=== PATIENT | male | born 1990 | race Caucasian/White ===

== ENCOUNTER 2023-09-15 05:38 | Emergency (ER) | payer BC, SELFPAY ==
--- NOTE | ~2023-09-15 | CT_ITS ---
Non-contrast CT scan of the Abdomen and Pelvis Clinical indication: Right flank pain Technique: 2.5 mm axial scans were obtained through the abdomen and pelvis without intravenous or or al contrast. Dose reduction technique was used on this scan by utilizing automated exposure control a nd iterative reconstruction technique. The dose-length product (DLP) was 493.10 mGy-cm. Findings: Images through the lung bases reveal calcified right basilar granuloma. There is no evidence of renal or ureteral calculi. The kidneys and the ureters are nondilated. The liver, spleen, pancreas, gallbladder, and adrenals appear normal. There is no aortic aneurysm. There is no evidence of bowel obstruction. Images through the pelvis were performed. There is no evidence of ascites or lymphadenopathy. Urinary bladder unremarkable. No pelvic mass seen. No ascites. Impression: No significant abnormality seen. Reviewed, dictated and finalized at [facility] [place]. Impression: No significant abnormality seen.
[2023-09-15 05:42] VITALS: TEMP 36.4
--- NOTE | 2023-09-15 05:51 | ED.ABDPAIN ---
HPI - Abdominal Pain General Chief Complaint: Abdominal Pain Stated Complaint: abd pain Time Seen by Provider: 09/15/23 05:42 History of Present Illness HPI narrative: Patient is a 32-year-old male who presents to the emergency department this morning complaining of sudden onset right lower quadrant abdominal pain. Patient states that the pain will come up from sleep around 3:00 a.m. Denies any similar symptoms in the past, and denies any history of kidney stones. Patient states that he went to urinate and felt as though he needed to urinate but could not get much out. He admits to nausea as well. Rates the pain 6/10. Denies any fevers or chills at home. Denies any lower back pain or right flank pain. No additional symptoms or concerns at this time. Related Data Allergies Allergy/AdvReac Type Severity Reaction Status Date / Time No Known Allergies Allergy Verified 09/15/23 05:52 Review of Systems Review of Systems: All systems are reviewed and are negative unless stated otherwise in the HPI. Exam Narrative: General: Alert, awake, afebrile, appears uncomfortable. HEENT: PERRL, no rhinorrhea, no post nasal drip, oropharynx clear. Cardiovascular: Regular rate and rhythm, no murmurs, rubs or gallops, no peripheral edema. Respiratory: Clear to auscultation bilaterally, no tachypnea, no wheezing, no rhonchi, no rubs, no respiratory distress. Abdomen: Soft, nontender, nondistended, no rebound, no guarding, no peritoneal signs. Musculoskeletal: No joint swelling or deformity, normal muscle tone. Skin: No rashes or petechia, no signs of infection. Neurological: Alert and oriented to person, place, and time. Follows all commands. No focal deficits, speech is clear and fluent. Course Vital Signs Vital signs: Vital Signs Temperature 97.6 F 09/15/23 05:42 Temperature 97.6 F 09/15/23 05:42 Pulse Rate 51 L 09/15/23 06:00 Respiratory Rate 16 09/15/23 06:00 Blood Pressure 145/99 H 09/15/23 06:00 Pulse Oximetry 100 09/15/23 06:00 MDM - Abdominal Pain MDM Narrative Medical decision making narrative: The patient was evaluated by myself in the emergency department. History is obtained from patient who is an independent historian and physical exam was performed. External medical records were reviewed at this time. IV was established and pertinent tests were ordered. Patient was administered a 1 L IV fluid bolus with normal saline, 15 mg of IV Toradol for pain and 4 mg of IV Zofran for nausea. Laboratory results obtained revealing no acute process. Urinalysis revealed 2+ blood and 51-100 rbc's. Imaging studies obtained included CT abdomen and pelvis which was independently interpreted by me revealing no acute process, which is pending final radiology interpretation. patient was informed that this could be due to him having passed a kidney stone. CT did not comment on patient's appendix and patient was informed that if his pain returns that he needs to come back to the emergency department for further evaluation. I did call the radiologist at this time as the final CT we did not comment on the patient's appendix. Dr. Lehman did look at the scan again and did inform me that the appendix appeared normal. Differential diagnosis considerations include obstructive uropathy, appendicitis and urinary tract infection. Comorbidities impacting this visit include none. I have evaluated and discussed social determinants of health with the patient that could potentially impact subsequent diagnosis and treatment plans. On repeat assessment of the patient, reevaluation revealed that the patient is doing well and is in no acute distress. Patient symptoms have improved since he arrived to our emergency department. Repeat vital signs were all reviewed and noted to be stable. Differential diagnosis and treatment plan were discussed with the patient at bedside. Patient agrees with discussion and after shared me
[2023-09-15] MEDS: KETOROLAC 15 MG/ML VIAL (*BKC) IV PUSH (05:52)
[2023-09-15] MEDS: SODIUM CHLORIDE 0.9% IV 1,000 ML 999 ML IV CONT (05:53)
[2023-09-15] MEDS: ONDANSETRON INJ 4 MG/2 ML VIAL IV PUSH (05:53)
[2023-09-15 06:00] VITALS: BP 145/99; PULSE 51; RESP 16; O2SAT 100
[2023-09-15 06:07] LABS: Basophils Absolute Auto 0.1 K/mm3 (0.0-0.1); Eosinophils Absolute Auto 0.1 K/mm3 (0-0.3); Eosinophils Percent Auto 2.4 % (0-4.4); Hematocrit 48.6 % (42.0-52.0); Hemoglobin 16.6 g/dL (14.0-18.0); Immature Granulocyte Absolute 0.03 K/mm3 (0.00-0.031); Immature Granulocyte Percent A 0.5 % (0-0.5); Lymphocytes Absolute Auto 2.22 K/mm3 (0.9-3.2); Lymphocytes Percent Auto 37.6 % (18.3-44.2); Mean Corpuscular HGB Conc 34.2 g/dl (32-36); Mean Corpuscular Hemoglobin 30.7 pg (26-34); Mean Platelet Volume 8.7 fl (7.4-10.4); Monocytes Absolute Auto 0.6 K/mm3 (0.1-0.6); Monocytes Percent Auto 9.5 % (2.6-8.5); Neutrophils Absolute Auto 2.9 K/mm3 (1.3-6.7); Platelet Count Result 228 k/mm3 (150-375); Red Cell Distribution Width 12.4 % (11.5-14.5); White Blood Count 5.9 K/mm3 (4.5-10.0)
[2023-09-15 06:18] LABS: Alanine Aminotransferase 29 U/L (6-50); Albumin Level 4.8 g/dL (3.5-5.1); Alkaline Phosphatase 70 U/L (38-126); Anion Gap 7 mmol/L (4-12); Appearance Urine Clear (Clear); Aspartate Amino Transferase 30 U/L (17-59); Bacteria Urine None Seen /hpf; Bilirubin Urine Negative (Negative); Blood Urea Nitrogen 33 mg/dL (9-20); Blood Urine 2+ (Negative); Calcium 10.5 mg/dL (8.4-10.2); Carbon Dioxide 29 mmol/L (22-30); Chloride 101 mmol/L (98-107); Color Urine Yellow (Yellow); Estimated CRCL calculation 84 ml/min; Estimated Glomerular Filt Rate > 60; Glucose 92 mg/dL (65-110); Glucose Urine UA Negative (Negative); Ketones Urine Negative (Negative); Leukocyte Esterase Ur Negative LEU/UL (Negative); Lipase 66 U/L (23-300); Nitrate Urine Negative (Negative); Non Pathogenic Casts 0-2; Potassium 3.9 mmol/L (3.4-5.0); Protein Urine Negative (Negative); RBC Urine 51-100 /hpf (0-2); Sodium 137 mmol/L (137-145); Specific Grav Ur 1.016 (1.001-1.035); Squamous Epithelial Cell Urine None Seen /hpf (Few); Urobilinogen Urine 0.2 mg/dL (<2.0); WBC Urine 0-5 /hpf (0-3)
[2023-09-15 06:24] LABS: Add Urine Microscopic? YES
[2023-09-15 06:55] VITALS: BP 140/86; PULSE 46; RESP 15; O2SAT 98
== END 2023-09-15 07:02 | disposition home or self-care (01) ==
PROVIDERS: Emergency Provider Emergency Medicine
DX: R10.31 Right lower quadrant pain (principal); R31.9 Hematuria, unspecified
CPT/HCPCS: 36415; 74176; 80053; 81001; 82248; 83690; 85025; 96361; 96374; 96375; 99284; J1885; J2405; J7030

== ENCOUNTER 2025-01-14 00:57 | Emergency (ER) | payer OTHER, SELFPAY ==
--- OUTSIDE RECORDS SUMMARY | 2025-01-14 01:00 | XMS_ITS | Encounter Summary ---
Author Organization [facility] Address [address] [place] [address] Care Team Providers Care Practice Support Specialist Name Role Phone Delfino Enriquez MD Primary Care Provider [phone] Encounter Details Date Type Department Care Team (Late st Contact Info) Description 11/22/2000 Outpatient Historical [facility] [address] [place] [address] Felix Suero MD [address] [facility] [address] [place] [address] Social History Tobacco Use Types Packs/Day Years Used Date Smoking Tobacco: Never Assessed Sex and Gender Information Value Date Recorded Sex Assigned at Not on file 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
--- OUTSIDE RECORDS SUMMARY | 2025-01-14 01:00 | XMS_ITS | Clinical Summary ---
Author Organization [facility] Address [address] [place] [address] Care Team Providers Care Residential Care Facility Manager Name Role Phone Delfino Enriquez MD Primary Care Provider [phone] Allergies No known active allergies Medications albuterol (PROVENTIL,AMOS TOLIN) 90 mcg/Actuation Inhalation HFAA Take 2 Puffs by inhalation every 4 hours as needed for Wheezing and Shortness of Breath (before activity). 1 Inhaler 3 1 Active predniSONE 10 mg Oral DsPk Take by mouth see administration instructions. As directed 21 Tab 0 1 Active Active Problems Problem Noted Date Diagnosed Date Migraine 10/17/2008 Asthma 10/17/2008 Immunizations Immunization Administration Dates Next Due (ADACEL/BOOSTRIX)(10 YR UP) TDAP VACCINE, 0.5ML, IM 08/24/2010 Family History Medical History Relation Name Comments Healthy Brother 1 Healthy Brother 2 Healthy Father Healthy Maternal Grandfather Healthy Maternal Grandmother Healthy Mother Other Paternal Grandfather dementi a Healthy Paternal Grandmother Healthy Sister 1 Healthy Sister 2 Relation Name Status Comments Brother 1 Brother 2 Father Maternal Grandfather Maternal Grandmother Mother Paternal Grandfather Paternal Grandmother Sister 1 Sister 2 Social History Tobacco Use Types Packs/Day Years Used Date Smoking Tobacco: Never Smokeless Tobacco: Never Alcohol Use Standard Drinks/Week Comments No 0 (1 standard drink = 0.6 oz pur e alcohol) Sex and Gender Information Value Date Recorded Sex Assigned at Not on file 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 Gender Identity Not on file Sexual Orientation Not on file Last Filed Vital Signs Vital Sign Reading Time Taken Comments Blood Pressure 116/74 08/24/2010 10:03 AM CDT Pulse 55 08/24/2010 10:03 AM CDT Temperature 36.4 C (97.6 F) 03/29/2010 9:35 AM CLEANER TOUCH UP WORKER Respiratory Rate - - Oxygen Saturation - - Inhaled Oxygen Concentration - - Weight 81.2 kg (179 lb) 08/24/2010 10:03 AM CDT Height 180.3 cm (5' 11) 08/24/2010 10:03 AM CDT Body Mass Index 24.97 08/24/2010 10:03 AM CDT Plan of Treatment Health Maintenance Due Date Last Done Comments HEPATITIS B VACCINES (1 of 3 - 19+ 3-dose series) 09/09 HPV VACCINES (1 - 3-dose SCDM series) 2017 DTAP/TDAP/TD VACCINES (2 - Td or Tdap) 08/24/2020 INFLUENZA VACCINE (#1) 2024 Insurance [employer] CHOICE Care Teams Residential Care Facility Manager Relationship Specialty Start Date End Date Delfino Enriquez MD PCP - General 10/17/08
--- OUTSIDE RECORDS SUMMARY | 2025-01-14 01:00 | XMS_ITS | Encounter Summary ---
Author Organization [facility] Address 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
--- OUTSIDE RECORDS SUMMARY | 2025-01-14 01:00 | XMS_ITS | Encounter Summary ---
Author Organization [facility] Address 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
[2025-01-14 01:01] VITALS: BP 151/87; PULSE 55; RESP 16; TEMP 37.1; O2SAT 98
--- NOTE | 2025-01-14 01:22 | ED_ITS ---
HPI - Skin/Abscess/Foreign Bdy General Chief complaint: Skin/Abscess/Foreign Body Stated complaint: rash to forearm Time Seen by Provider: 01/14/25 01:15 Source: patient Mode of arrival: ambulatory Limitations: no limitations History of Present Illness HPI narrative: This is a 34-year-old male that presents to the emergency department for rash to the right arm. Reports the area is painful. Ongoing since this afternoon. Denies fevers. Related Data Allergies Allergy/AdvReac Type Severity Reaction Status Date / Time No Known Allergies Allergy Verified 09/15/23 05:52 Review of Systems Review of Systems: All systems reviewed & are unremarkable except as noted in HPI and below PMFSH Past Medical History Medical History (Updated 01/14/25 @ 02:38 by Ina Patiño PA-C) No active medical problems Exam Narrative: GENERAL: Well-appearing, well-nourished, and in no acute distress. HEAD: Normocephalic, atraumatic. EYES: EOMI. EXTREMITIES: Normal range of motion. No edema. SKIN: Warm, dry. Vesicular rash to the right forearm NEURO: No focal deficits. Alert and oriented x3. PSYCH: Normal mood and affect Course Vital Signs Vital signs: Vital Signs Temperature 98.7 F 01/14/25 01:01 Pulse Rate 55 L 01/14/25 01:01 Respiratory Rate 16 01/14/25 01:01 Blood Pressure 151/87 H 01/14/25 01:01 Pulse Oximetry 98 01/14/25 01:01 Temperature 98.7 F 01/14/25 01:01 Pulse Rate 55 L 01/14/25 01:01 Respiratory Rate 16 01/14/25 01:01 Blood Pressure 151/87 H 01/14/25 01:01 Pulse Oximetry 98 01/14/25 01:01 MDM - Skin/Abscess/Foreign Bdy MDM Narrative Medical decision making narrative: Patient presents the emergency department for rash to the right forearm. Suspicious for shingles. Patient will be started on antiviral and steroid. He is to follow up with primary provider. He was given warnings to return to the ER Differential Diagnosis Differential diagnosis: Likely viral exanthem, herpes zoster, cellulitis, eczema and contact dermatitis Critical Care Time Critical Care Time Critical Care Time: No Discharge Plan Discharge Clinical Impression: Rash and nonspecific skin eruption Patient Disposition: Home Condition: Stable Instructions: Contact Dermatitis (ED), Shingles (ED) Additional Instructions: Return to the ER if you experience fever, redness and swelling of your arm, or any other symptoms that are concerning to you Keep the area clean, dry, covered. Take antiviral and steroid as prescribed Follow up with your primary doctor Patient Language: Mozambican Prescriptions: New valacyclovir 1 gram tablet 1,000 mg PO Q8H 7 Days Qty: 21 0RF prednisone 20 mg tablet 40 mg PO DAILY 4 Days Qty: 8 0RF No Action ondansetron 4 mg tablet,disintegrating 4 mg PO Q8H PRN (Reason: nausea and vomiting) Qty: 10 0RF hydrocodone-acetaminophen 5-325 mg tablet 1 tablet PO Q8H PRN (Reason: pain) Qty: 10 0RF ibuprofen 400 mg tablet 400 mg PO Q6H PRN (Reason: pain) Qty: 14 0RF Follow-up/Referrals: UNKNOWN,DOCTOR [Primary Care Provider]
== END 2025-01-14 01:44 | disposition home or self-care (01) ==
PROVIDERS: Emergency Provider Physician Assistant
DX: R21 Rash and other nonspecific skin eruption (principal)
CPT/HCPCS: 99283; A9270; J7512

== ENCOUNTER 2025-01-26 11:17 | Observation (INO) | payer BC, SELFPAY ==
[2025-01-26] VITALS (10 sets, daily range): BP systolic 105–129; BP diastolic 57–82; PULSE 58–69; RESP 9–18; TEMP 36.4–37.6; O2SAT 97–100; BMI 28.5
--- NOTE | ~2025-01-26 | CT_ITS ---
CHEST ABDOMEN PELVIS WITH CONTRAST CLINICAL HISTORY: Right flank pain, right-sided pelvic pain, trauma . COMPARISON: None TECHNIQUE: Helical CT performed from thoracic inlet to symphysis pubis IV contrast information not listed in PACS Coronal, sagittal reformats. Multi planar MIPS CT images acquired with automatic exposure control for dose reduction DLP: 1099 mGy-cm FINDINGS: CHEST- Lungs/Pleura: Clear. Thoracic Aorta: No dissection. No aneurysm. Pulmonary arteries: Normal caliber. Heart: Unremarkable. Tracheobronchial tree: Patent. Nodes: No enlarged nodes. Bones: Fracture posterior right rib 11. Soft tissues: Unremarkable. ABDOMEN/PELVIS- Liver: Unremarkable. Gallbladder: Unremarkable. Spleen: Unremarkable. Pancreas: Unremarkable. Adrenal glands: Unremarkable. Kidneys: Right kidney- No hydronephrosis. No renal stones. Left kidney- No hydronephrosis. No renal stones. Distal esophagus/stomach: Unremarkable. Small bowel loops: Normal caliber and wall thickness. Colon: Normal caliber and wall thickness. Normal RLQ appendix. Nodes: No enlarged nodes. Peritoneum: No ascites. No free air. Urinary bladder: Unremarkable. Prostate: Unremarkable. Bones: Comminuted fracture right iliac. Soft tissues: Small round hypodense focus right iliacus muscle. Aorta: No aneurysm or dissection. IVC: Unremarkable. Main portal vein/SMV/splenic vein: Patent. IMPRESSION: CHEST- 1. Fracture posterior right rib 11. 2. No acute cardiopulmonary abnormality. ABDOMEN/PELVIS- 1. Comminuted fracture right iliac. 2. No acute traumatic injury within abdomen or pelvis. Reviewed, dictated and finalized at location R.
--- NOTE | ~2025-01-26 | CT_ITS ---
CT HEAD NON-CONTRAST CT C-SPINE CT FACE Clinical History: trauma Comparison: None Technique: Unenhanced axial images skull base to vertex. Coronal, sagittal reformats. Axial images thoracic inlet to skull base. Sagittal and coronal reformats. CT images acquired with automatic exposure control for dose reduction DLP: 605 mGy-cm Findings: Head: Sulci, ventricles: Unremarkable. No intracerebral hemorrhage. No evidence acute territorial infarct. No mass effect, midline shift, intra-/extra-axial fluid collection. Bony calvarium intact. Visualized paranasal sinuses: Clear. Mastoid air cells: Clear. C-spine: No acute fracture or listhesis. Straightening of normal cervical lordosis. No significant degenerative changes. Disc spaces maintained. Prevertebral soft tissues within normal limits. Visualized lung apices: Clear. Visualized thyroid: Unremarkable. No enlarged cervical nodes. CT face: No fractures. IMPRESSION: HEAD: 1. No acute intracranial findings. C-SPINE: 1. No acute fracture. CT FACE: 1. No fractures. Reviewed, dictated and finalized at location R. IMPRESSION: HEAD: 1. No acute intracranial findings. C-SPINE: 1. No acute fracture. CT FACE: 1. No fractures.
--- OUTSIDE RECORDS SUMMARY | 2025-01-26 11:19 | XMS_ITS | Encounter Summary ---
Author Organization [facility] Address [address] [place] [address] Care Team Providers Care Supervisor Airplane Flight Attendant Name Role Phone Delfino Enriquez MD Primary Care Provider [phone] Encounter Details Date Type Department Care Team (Late st Contact Info) Description 11/22/2000 Outpatient Historical [facility] Pediatric[facility] [address] [place] [address] Felix Suero MD [address] [facility] [address] [place] [address] Social History Tobacco Use Types Packs/Day Years Used Date Smoking Tobacco: Never Assessed Sex and Gender Information Value Date Recorded Sex Assigned at Not on file 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
--- OUTSIDE RECORDS SUMMARY | 2025-01-26 11:19 | XMS_ITS | Clinical Summary ---
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
--- OUTSIDE RECORDS SUMMARY | 2025-01-26 11:19 | XMS_ITS | Encounter Summary ---
Author Organization [facility] Address 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
--- OUTSIDE RECORDS SUMMARY | 2025-01-26 11:19 | XMS_ITS | Encounter Summary ---
Author Organization [facility] Address 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
--- NOTE | 2025-01-26 11:35 | ED.GENADULT ---
HPI - General Adult General Chief complaint: Head Injury Stated complaint: head injury Time Seen by Provider: 01/26/25 11:26 History of Present Illness HPI narrative: 34-year-old male present to the emergency department for evaluation after having a fall from a rope swing with loss of consciousness. Patient was swinging on a large rope swing and the patient collided with a tree. Patient states he landed on his right hip and back and his face struck the tree. Patient had loss of consciousness for approximately 2 minutes. Patient does have right-sided facial abrasions and 2 small facial lacerations. Patient does complain of right flank pain and right hip pain. Patient is not on any blood thinners. Related Data Home Medications ?Medication ?Instructions ?Recorded ?Confirmed ?Last Taken ?Type No Home Medications 01/26/25 01/26/25 Unknown History Allergies Allergy/AdvReac Type Severity Reaction Status Date / Time No Known Allergies Allergy Verified 01/26/25 17:38 Review of Systems Review of Systems: All systems reviewed & are unremarkable except as noted in HPI and below PMFSH Past Medical History Medical History (Updated 01/26/25 @ 14:16 by Cedric Bullock MD) No active medical problems Social History Social History Smoking status: Never smoker Alcohol intake: never Substance use: never Substance use type: does not use Lack of Transportation: No Lack of Food: Never True Current Housing: I Have Housing Concerned About Future Housing: No Difficulty Paying Gas/Electric Bills: No Difficulty Paying for Meds: No Currently Unemployed: No Education: Trade/Vocational Certificate Difficulty w/ Childcare or Family Care: No Spiritual care concerns: No Exam Narrative: APPEARANCE: Uncomfortable appearing HEAD: normocephalic, right-sided facial abrasions and lacerations. EYES: PERRLA/EOMI, conjunctivae clear. No double vision, normal field of vision on both eyes NOSE: Normal no drainage EARS:TMS clear with good light reflex. THROAT: Pharynx clear, no exudate. NECK: Supple. No adenopathy, no masses. RESPIRATORY: Airway patent, respirations nonlabored. Clear to auscultation bilaterally, no rales, rhonchi, wheezing. CARDIOVASCULAR: Regular rate and rhythm without murmurs rubs or gallops. ABDOMINAL: Right lower rib and right flank tenderness to palpation MUSCULOSKELETAL: Right buttock and hip tenderness to palpation NEURO: Alert. Cranial nerves II through XII intact. Good gait. Good coordination SKIN: Warm, dry. Normal Color Course Vital Signs Vital signs: Vital Signs Temperature 97.6 F 01/26/25 11:23 Pulse Rate 69 01/26/25 11:23 Respiratory Rate 18 01/26/25 11:23 Blood Pressure 124/79 01/26/25 11:23 Pulse Oximetry 100 01/26/25 11:23 Oxygen Delivery Room Air 01/26/25 11:23 Temperature 97.6 F 01/26/25 11:23 Pulse Rate 61 01/26/25 17:00 Respiratory Rate 15 01/26/25 17:00 Blood Pressure 116/60 01/26/25 17:00 Pulse Oximetry 98 01/26/25 17:00 Oxygen Delivery Room Air 01/26/25 17:05 Procedures Laceration Laceration 1: Date: 01/26/25 Time: 12:57 Site: face Side (If applicable): right Size (cm): 1 Description: linear Depth: simple, single layer Local Anesthetic: lidocaine 1% and with epi Amount of anesthesia used (mL): 1 Pre-repair: wound explored, irrigated and irrigated extensively ====== Skin Level ====== Skin layer closed with: prolene Size (cm): 6-0 Number of sutures: 2 Technique: simple, interrupted ====== Subcutaneous Layer ====== ====== Muscle Layer ====== ====== Tendon Layer ====== Laceration 2: Date: 01/26/25 Time: 12:58 Site: face Side (If applicable): right Size (cm): 1 Description: irregular Depth: simple, single layer Local Anesthetic: lidocaine 1% and with epi Amount of anesthesia used (mL): 1 Pre-repair: wound explored and irrigated ====== Skin Level ====== Skin layer closed with: prolene Size (cm): 6-0 Number of sutures: 1 Technique: simple, interrupted ====== Subcutaneous Layer ====== ====== Muscle Layer ====== ====== Tendon Layer ====== Medical Decision Making MDM Narrative Medical decision making narrative: [age] old male presents to the emergency department for evaluation after an injury involving a rope swing. Patient did report approximately 2 minutes of loss of consciousness. Head CT facial CT cervical spine CT were negative. Patient does have a right-sided 11th rib fracture and a comminuted iliac fracture. Case was discussed with our orthopedic surgeon and he felt the patient would benefit from transfer to a trauma center. After reviewing the images ortho felt that the patient could stay here. I did get the patient accepted to [facility] as a level 3 trauma. And discussion with the patient he did prefer to stay here at [facility]. Differential Diagnosis Differential Diagnosis: Subdural hematoma, subarachnoid hemorrhage, cervical spine fracture, pneumothorax, hemothorax, rib fracture, abdominal injury, pelvic fracture, hip fracture Vital Signs Vital Signs: Vital Signs Temperature 97.6 F 01/26/25 11:23 Pulse Rate 69 01/26/25 11:23 Respiratory Rate 18 01/26/25 11:23 Blood Pressure 124/79 01/26/25 11:23 Pulse Oximetry 100 01/26/25 11:23 Oxygen Delivery Room Air 01/26/25 11:23 Temperature 97.6 F 01/26/25 11:23 Pulse Rate 61 01/26/25 17:00 Respiratory Rate 15 01/26/25 17:00 Blood Pressure 116/60 01/26/25 17:00 Pulse Oximetry 98 01/26/25 17:00 Oxygen Delivery Room Air 01/26/25 17:05 Lab Data Lab results reviewed: Yes I reviewed the patient's lab results. 01/26/25 11:43 01/26/25 11:49 Labs: Lab Results 01/26/25 01/26/25 Range/Units 11:43 11:49 WBC 5.5 (4.5-10.0) K/mm3 RBC 5.36 (4.6-6.20) M/mm3 Hgb 16.3 (14.0-18.0) g/dL Hct 46.9 (42.0-52.0) % MCV 87.5 (80-100) fl MCH 30.4 (26-34) pg MCHC 34.8 (32-36) g/dl RDW 12.9 (11.5-14.5) % Plt Count 191 (150-375) k/mm3 MPV 8.8 (7.4-10.4) fl Immature Gran % (Auto) 0.5 (0-0.5) % Neut % (Auto) 64.2 (45.5-73.1) % Lymph % (Auto) 25.1 (18.3-44.2) % Castro % (Auto) 8.1 (2.6-8.5) % Eos % (Auto) 1.4 (0-4.4) % Baso % (Auto) 0.7 (0.2-1.2) % Lymph # (Auto) 1.39 (0.9-3.2) K/mm3 Castro # (Auto) 0.5 (0.1-0.6) K/mm3 Eos # (Auto) 0.1 (0-0.3) K/mm3 Baso # (Auto) 0.0 (0.0-0.1) K/mm3 Abs Immat Gran (auto) 0.03 (0.00-0.031) K/mm3 Absolute Neuts (auto) 3.5 (1.3-6.7) K/mm3 Absolute Nucleated RBC 0.000 (0.0-0.012) K/mm3 Nucleated RBC % 0.0 (0.0-0.2) % PT 13.0 (11.1-14.7) Seconds INR 1.0 APTT 21.2 L (22.3-36.8) Seconds Sodium 138 (137-145) mmol/L Potassium 4.0 (3.4-5.0) mmol/L Chloride 101 (98-107) mmol/L Carbon Dioxide 30 (22-30) mmol/L Anion Gap 7 (4-12) mmol/L BUN 23 H D (9-20) mg/dL Creatinine 1.25 1.50 (0.7-1.3) mg/dL Estim Creat Clear Calc 79 67 ml/min Estimated GFR > 60 54 L (59 - ) Glucose 104 (65-110) mg/dL Calcium 9.6 (8.4-10.2) mg/dL Total Bilirubin 1.3 (0.2-1.3) mg/dL AST 49 (17-59) U/L ALT 38 (6-50) U/L Alkaline Phosphatase 67 (38-126) U/L Total Protein 7.5 (6.3-8.2) g/dL Albumin 4.4 (3.5-5.1) g/dL Imaging Data Radiologist's impression: Impressions Head CT 01/26/25 12:11 IMPRESSION: HEAD: 1. No acute intracranial findings. C-SPINE: 1. No acute fracture. CT FACE: 1. No fractures. Head/Cervical Spine/Facial Bones CT 01/26/25 12:11 IMPRESSION: HEAD: 1. No acute intracranial findings. C-SPINE: 1. No acute fracture. CT FACE: 1. No fractures. Chest/Abdomen/Pelvis CT 01/26/25 12:27 IMPRESSION: CHEST- 1. Fracture posterior right rib 11. 2. No acute cardiopulmonary abnormality. ABDOMEN/PELVIS- 1. Comminuted fracture right iliac. 2. No acute traumatic injury within abdomen or pelvis. Discharge Plan Discharge Clinical Impression: Closed head injury, Face lacerations, Closed fracture of rib of right side, Closed fracture of iliac wing of pelvis Patient Disposition: Still a Patient Condition: Serious
[2025-01-26 11:48] LABS: Hematocrit 46.9 % (42.0-52.0); Hemoglobin 16.3 g/dL (14.0-18.0); Immature Granulocyte Percent A 0.5 % (0-0.5); Lymphocytes Absolute Auto 1.39 K/mm3 (0.9-3.2); Mean Corpuscular HGB Conc 34.8 g/dl (32-36); Mean Corpuscular Hemoglobin 30.4 pg (26-34); Mean Corpuscular Volume 87.5 fl (80-100); Nucleated Red Blood Cells Absolute Auto 0.000 K/mm3 (0.0-0.012); Nucleated Red Blood Cells Perc 0.0 % (0.0-0.2); Platelet Count Result 191 k/mm3 (150-375); Red Blood Count 5.36 M/mm3 (4.6-6.20); White Blood Count 5.5 K/mm3 (4.5-10.0)
[2025-01-26 11:53] LABS: Estimated CRCL calculation 67 ml/min; Estimated Glomerular Filt Rate 54
[2025-01-26] MEDS: HYDROmorphone HCL INJ (*CRX) 1 MG/ML SYR IV PUSH (12:05)
[2025-01-26 12:10] LABS: Alanine Aminotransferase 38 U/L (6-50); Albumin Level 4.4 g/dL (3.5-5.1); Alkaline Phosphatase 67 U/L (38-126); Anion Gap 7 mmol/L (4-12); Aspartate Amino Transferase 49 U/L (17-59); Bilirubin,Total 1.3 mg/dL (0.2-1.3); Blood Urea Nitrogen 23 mg/dL (9-20); Calcium 9.6 mg/dL (8.4-10.2); Carbon Dioxide 30 mmol/L (22-30); Chloride 101 mmol/L (98-107); Estimated CRCL calculation 79 ml/min; Estimated Glomerular Filt Rate > 60; Glucose 104 mg/dL (65-110); Potassium 4.0 mmol/L (3.4-5.0); Sodium 138 mmol/L (137-145); Total Protein 7.5 g/dL (6.3-8.2)
--- OUTSIDE RECORDS SUMMARY | 2025-01-26 12:10 | XMS_ITS | Encounter Summary ---
Author Organization [facility] Address 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
--- OUTSIDE RECORDS SUMMARY | 2025-01-26 12:10 | XMS_ITS | Clinical Summary ---
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
--- OUTSIDE RECORDS SUMMARY | 2025-01-26 12:10 | XMS_ITS | Encounter Summary ---
Author Organization [facility] Address 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
[2025-01-26 12:13] LABS: INR 1.0; Prothrombin Time 13.0 Seconds (11.1-14.7)
[2025-01-26 12:14] LABS: Partial Thromboplastin Time 21.2 Seconds (22.3-36.8)
--- NOTE | 2025-01-26 15:02 | PM.IMHP ---
H&P: HPI History of Present Illness Date/Time: 01/26/25 15:02 Chief Complaint: Head injury Narrative: 34-year-old male with no past medical history presents to the emergency department on 01/26/2025 after swinging into a tree on a rope swing and losing consciousness. Patient remembers hitting the tree with his right hip and the right side of his body (chest and head) wrapping around the tree in the collision. He immediately lost consciousness for approximately 2 minutes as witnessed by his . Right-sided facial abrasions and 2 small lacerations noted. Patient denies nausea or vomiting after regaining consciousness. Does complain of a slight headache. Denies vision changes. No change in mentation. A&Ox4. Labs with no significant abnormalities. Head CT with no intracranial findings. Head, C-spine, facial bone CT shows no fractures or bleeds Chest abdomen pelvis CT with no acute traumatic injury within the abdomen or pelvis, no cardiopulmonary abnormality, comminuted fracture right iliac, and fracture posterior right rib 11 Review of Systems Review of Systems: All systems reviewed & are unremarkable except as noted in HPI and below PMFSH Past Medical History Medical History No active medical problems Social History Social History Smoking status: Never smoker Alcohol intake: never Substance use: never Substance use type: does not use Lack of Transportation: No Lack of Food: Never True Current Housing: I Have Housing Concerned About Future Housing: No Difficulty Paying Gas/Electric Bills: No Difficulty Paying for Meds: No Currently Unemployed: No Education: Trade/Vocational Certificate Difficulty w/ Childcare or Family Care: No Spiritual care concerns: No Meds Home Medications and Allergies Home Medications ?Medication ?Instructions ?Recorded ?Confirmed ?Type No Home Medications 01/26/25 01/26/25 History Allergies Allergy/AdvReac Type Severity Reaction Status Date / Time No Known Allergies Allergy Verified 01/26/25 17:38 Vital Signs Vital Signs - 24 hr 01/26/25 11:23 01/26/25 12:10 01/26/25 12:10 Temperature 97.6 F Pulse Rate 69 66 59 L Respiratory Rate 18 15 9 L Blood Pressure 124/79 129/82 129/82 Pulse Oximetry 100 100 98 Oxygen Delivery Room Air 01/26/25 12:31 Temperature Pulse Rate 61 Respiratory Rate 12 Blood Pressure 105/67 Pulse Oximetry 98 Oxygen Delivery Exam Narrative: GENERAL: non-toxic appearing, in no acute distress. HEAD: Abrasions and lacerations to the right side of his face and head EYES: PERRLA. Has normal field of vision in both eyes EARS: No discharge. Tympanic membranes intact NOSE: Normal no drainage. THROAT: Pharynx clear, no exudate. NECK: Trachea midline. No adenopathy, no masses. RESPIRATORY: Airway patent, respirations nonlabored. CTA. CARDIOVASCULAR: Regular rate and rhythm GASTROINTESTINAL: Abdomen is soft and nontender. No organomegaly. Bowel sounds normal in all quadrants. GENITOURINARY: Defer MUSCULOSKELETAL: Moves all extremities. No gross deformities. No calf tenderness. SKIN: Warm, dry, normal color. NEURO: A&O X4. Speech clear PSYCHIATRIC: Normal interaction H&P: Results Labs Labs: Short CBC 01/26/25 Range/Units 11:43 WBC 5.5 (4.5-10.0) K/mm3 Hgb 16.3 (14.0-18.0) g/dL Hct 46.9 (42.0-52.0) % Plt Count 191 (150-375) k/mm3 [facility] 01/26/25 01/26/25 11:43 11:49 Sodium 138 Potassium 4.0 Chloride 101 Carbon Dioxide 30 BUN 23 H D Creatinine 1.25 1.50 Glucose 104 Calcium 9.6 Liver Function 01/26/25 Range/Units 11:43 Total Bilirubin 1.3 (0.2-1.3) mg/dL AST 49 (17-59) U/L ALT 38 (6-50) U/L Alkaline Phosphatase 67 (38-126) U/L Albumin 4.4 (3.5-5.1) g/dL Assessment and Plan Assessment and plan (1) Closed fracture of iliac wing of pelvis: Qualifiers: Encounter type: initial encounter Laterality: right Qualified Code(s): S32.301A - Unspecified fracture of right ilium, initial encounter for closed fracture Code(s): S32.309A - Unspecified fracture of unspecified ilium, initial encounter for closed fracture Status: Acute Assessment and Plan: Collided with a tree while swinging on a rope swing. Patient remembers hitting the tree with his right hip. Chest abdomen pelvis CT revealed comminuted fracture right iliac. -orthopedic consult -pain control with acetaminophen and hydromorphone. Deescalate to hydrocodone before discharge (2) Closed head injury: Qualifiers: Encounter type: initial encounter Qualified Code(s): S09.90XA - Unspecified injury of head, initial encounter Code(s): S09.90XA - Unspecified injury of head, initial encounter Status: Acute Assessment and Plan: Loss of consciousness for about 2 minutes after colliding with a tree, while on a rope swing, on the right side of head and face. Right-sided facial abrasions and [address] noted.Head CT with no intracranial findings. Head, C-spine, facial bone CT shows no fractures or bleeds. -lacerations repaired in ED -Zofran p.r.n. nausea -monitor for symptoms of concussion (3) Closed fracture of rib of right side: Qualifiers: Encounter type: initial encounter Rib fracture type: single rib Qualified Code(s): S22.31XA - Fracture of one rib, right side, initial encounter for closed fracture Code(s): S22.31XA - Fracture of one rib, right side, initial encounter for closed fracture Status: Acute Assessment and Plan: Chest abdomen pelvis CT reveals fracture to the posterior right rib 11 -pain control with hydromorphone and acetaminophen -deescalate prior to DC -encourage splinting to assist with deep inspiration Plan Diet: Regular GI prophylaxis: NA DVT prophylaxis: SCDs lines/drains: PIV Fluids: None Code status: Full Quality VTE Prophylaxis VTE prophylaxis: mechanical ordered
--- OUTSIDE RECORDS SUMMARY | 2025-01-26 16:41 | XMS_ITS | Encounter Summary ---
Author Organization [facility] Address 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
--- OUTSIDE RECORDS SUMMARY | 2025-01-26 16:41 | XMS_ITS | Encounter Summary ---
Author Organization [facility] Address [address] [place] [address] Care Team Providers Care Rolling Machine Tender Name Role Phone Delfino Enriquez MD Primary Care Provider [phone] Encounter Details Date Type Department Care Team (Late st Contact Info) Description 11/22/2000 Outpatient Historical [facility] Pediatrics [address] [place] [address] Felix Suero MD [address] [facility] [address] [place] [address] Social History Tobacco Use Types Packs/Day Years Used Date Smoking Tobacco: Never Assessed Sex and Gender Information Value Date Recorded Sex Assigned at Not on file 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
--- OUTSIDE RECORDS SUMMARY | 2025-01-26 16:41 | XMS_ITS | Clinical Summary ---
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
--- OUTSIDE RECORDS SUMMARY | 2025-01-26 16:41 | XMS_ITS | Encounter Summary ---
Author Organization [facility] Address 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
--- NOTE | 2025-01-26 17:05 | PC.NURSE ---
This patient, Keo York, was admitted to [facility] Surg Room 319-01 at 1705. Patient/family oriented to hospital policies and general routines including ID bracelet, bed and alarms, visiting hours, pain management, procedures, bathroom and other care routines, personal items, smoking policy, room service/diet, and visiting hours. Information on how to activate the Rapid Response Team has been discussed. Patient/Family are encouraged to report perceived risks to care and to ask questions if they do not understand what they are told or what they should do.
[2025-01-26] MEDS: HYDROcodone/acetaminophen (*CRX) 5-325 MG TABLET 1 TAB PO (21:13)
[2025-01-27 05:04] VITALS: BP 119/64; PULSE 51; RESP 20; TEMP 36.7; O2SAT 98
[2025-01-27] MEDS: HYDROcodone/acetaminophen (*CRX) 5-325 MG TABLET 1 TAB PO ×3 (05:14→15:04)
--- NOTE | 2025-01-27 12:24 | P.CONOP_ITS ---
Assessment and Plan Assessment and plan (1) Closed fracture of rib of right side: Qualifiers: Encounter type: initial encounter Rib fracture type: single rib Q ualified Code(s): S22.31XA - Fracture of one rib, right side, initial encounter for closed fracture Code(s): S22.31XA - Fracture of one rib, right side, initial encounter for closed fracture Status: Acute Assessment and Plan: New patient evaluation for chief complaint Injury on rope swing right side. History, physical exam and radiographs reviewed with the patient. Discussed the condition, nature, etiology and course of natural history with the patient. Treatment options including surgical and nonoperative treatment were reviewed. Risks and benefits of each as well as alternatives reviewed. The patient's questions were answered. Conservative treatment ice, compression and elevation. Activity precautions reviewed. Follow-up in 1 week. (2) Closed fracture of iliac wing of pelvis: Qualifiers: Encounter type: initial encounter Laterality: right Qualified Code(s): S32.301A - Unspecified fracture of right ilium, initial encounter for closed fracture Code(s): S32.309A - Unspecified fracture of unspecified ilium, initial encounter for closed fracture Status: Acute Assessment and Plan: New patient evaluation status post injury On rope swing. The history, physical exam and radiographs reviewed with the patient. Type of fracture discussed in detail. right iliac wing fracture. Treatment options including operative and non operative treatment reviewed. Risks, benefits and alternatives of each treatment discussed in detail. The patient has Opted for non operative treatment. Risks of treatment decision discussed in detail. Potential problems with displacement of the fracture, loss of alignment, nonunion, malunion and dysfunction discussed in detail. The patient's questions were answered. They verbalized understanding and agreement. Conservative treatment with immobilization, ice, dvt px. crutches, toe-touch weight-bearing. Pain control. PT/OT. Home when stable. Ortho follow-up next week. Unable to work until follow-up. History of Present Illness HPI Consult date: 01/27/25 Requesting physician: Kobe Sumner MD Chief complaint: right iliac fx Narrative: 34-year-old injured on a rope swing yesterday. Hit the right side of his head and body including right rib and right hip. Loss of consciousness for approximately 2 minutes. Radiographs show fracture of the 11th right rib when fracture of the right iliac wing. Denies numbness or tingling. Pain with movement. Review of Systems 2 Constitutional: Constitutional: Denies fever(s) Eyes: Eyes: Denies blurry vision ENT: Reports Normal hearing present Cardiovascular: Cardiovascular: Denies chest pain and Denies dyspnea Respiratory: Respiratory: Denies dyspnea and Denies wheezing Gastrointestinal: Gastrointestinal: Denies abdominal pain Genitourinary: Genitourinary: Denies urinary urgency Musculoskeletal: Musculoskeletal: Reports as per HPI and Denies numbness Integumentary/Breasts: Skin/Breast: Denies changing lesions and Denies sores Neurologic: Reports Normal hearing present, Denies behavioral changes, Denies confusion, Denies numbness and Denies convulsions Psychiatric: Psychiatric: Denies behavioral changes, Denies confusion and Denies hallucinations Endocrine: Endocrine: Denies heat intolerance Hematologic/Lymphatic: Hematologic/Lymphatic: Denies easy bleeding Allergic/Immunologic: Allergic/Immunologic: Denies wheezing PMFSH Past Medical History Medical History No active medical problems Social History Social History Smoking status: Never smoker Alcohol intake: never Substance use: never Substance use type: does not use Lack of Transportation: No Lack of Food: Never True Current Housing: I Have Housing Concerned About Future Housing: No Difficulty Paying Gas/Electric Bills: No Difficulty Paying for Meds: No Currently Unemployed: No Education: Trade/Vocational Certificate Difficulty w/ Childcare or Family Care: No Spiritual care concerns: No Meds Home Medications and Allergies Home Medications ?Medication ?Instructions ?Recorded ?Confirmed ?Type No Home Medications 01/26/25 01/26/25 H istory Allergies Allergy/AdvReac Type Severity Reaction Status Date / Time No Known Allergies Allergy Verified 01/26/25 17:38 Vital Signs Vital Signs - 24 hr 01/26/25 12:31 01/26/25 13:20 01/26/25 15:02 Temperature Pulse Rate 61 65 69 Respiratory Rate 12 16 16 Blood Pressure 105/67 Pulse Oximetry 98 99 97 Oxygen Delivery 01/26/25 15:15 01/26/25 15:30 01/26/25 17:00 Temperature Pulse Rate 63 60 61 Respiratory Rate 17 14 15 Blood Pressure 116/60 Pulse Oximetry 97 97 98 Oxygen Delivery 01/26/25 17:05 01/26/25 20:00 01/26/25 21:31 Temperature 99.7 F H Pulse Rate 58 L 58 L Respiratory Rate 18 18 Blood Pressure 116/57 L Pulse Oximetry 97 97 Oxygen Delivery Room Air Room Air 01/27/25 05:04 Temperature 98.0 F Pulse Rate 51 L Respiratory Rate 20 Blood Pressure 119/64 Pulse Oximetry 98 Oxygen Delivery Exam 2 Const: General: No confusion Orientation/consciousness: patient oriented x3 and No confusion HENMT: Head: normal to inspection, normocephalic and atraumatic Eyes: Conjunctivae: conjunctivae normal Sclera: sclerae normal Neck: Neck: supple and nontender Chest: Chest palpation & inspection: normal inspection of the chest Resp: Effort & Inspection: normal respiratory effort and no audible wheezes Cardio: Rate: regular rate Rhythm: regular rhythm GI: GI Palp: No abdominal tenderness and Yes Soft to palpation : General: Yes deferred Skin: General skin exam: no rashes or lesions noted Neuro: General: patient oriented x3 and No confusion Extrem: General: capillary refill normal Right upper extremity: normal to inspection Left upper extremity: normal to inspection Right lower extremity: hip/thigh Details: tenderness Location: of the hip Location: laterally and swelling Location: at the hip ( mild), ankle ( able to actively flex and extend ankle) Details: no tenderness and foot Details: normal capillary refill, toes with normal ROM, vascular exam Details: dorsalis pedis pulse present and normal capillary refill and motor-sensory exam Details: light-touch normal Location: in all toes; no tenderness Left lower extremity: normal to inspection, hip/thigh Details: no tenderness and no swelling, lower leg, ankle (no calf tenderness) Details: normal ROM; no tenderness and foot Details: normal capillary refill, vascular exam Details: dorsalis pedis pulse present and normal capillary refill and motor-sensory exam light-touch normal in all toes Psych: Affect: normal affect Results Labs 01/26/25 11:43 01/26/25 11:49 Labs: H & H 01/26/25 Range/Units 11:43 Hgb 16.3 (14.0-18.0) g/dL Hct 46.9 (42.0-52.0) % Coagulation 01/26/25 Range/Units 11:43 INR 1.0 All other labs normal. Fracture/Casting/Strapping Pre Procedure Consent was obtained, Procedures/risks were explained, Questions were answered, Correct patient identified and Correct side and site confirmed Episode of Care New episode Location: Right hip Fracture Care Pelvis/hip/femur Pelvis, Hip, Femur: CLOSED TX PELVIC RING FX Application Exam of Affected Area: Color: Normal, Temp: Normal, Pulse: Normal, Blanching: Normal, Capillary Refill: Normal and Sensory Exam: Normal Swelling: Yes (mild) and Tenderness: Yes (rt pelvis) Skin Apperance: Clean and Dry and Intact Patient Tolerated Procedure Well: Yes Post Procedure Patient tolerated the procedure well?: Tolerated procedure well
[2025-01-27 13:50] VITALS: BP 118/54; PULSE 56; RESP 16; TEMP 36.8; O2SAT 99
--- NOTE | 2025-01-27 15:32 | PM.DS ---
DS: Admitting Diagnosis Discharge Date 01/27/25 Admitting Diagnosis - closed fracture of iliac wing of pelvis - closed head injury - closed fracture of the rib DS: Discharge Diagnosis Discharge Diagnosis (1) Closed fracture of iliac wing of pelvis: Qualifiers: Encounter type: initial encounter Laterality: right Qualified Code(s): S32.301A - Unspecified fracture of right ilium, initial encounter for closed fracture Code(s): S32.309A - Unspecified fracture of unspecified ilium, initial encounter for closed fracture Status: Acute (2) Closed head injury: Qualifiers: Encounter type: initial encounter Qualified Code(s): S09.90XA - Unspecified injury of head, initial encounter Code(s): S09.90XA - Unspecified injury of head, initial encounter Status: Acute (3) Closed fracture of rib of right side: Qualifiers: Encounter type: initial encounter Rib fracture type: single rib Qualified Code(s): S22.31XA - Fracture of one rib, right side, initial encounter for closed fracture Code(s): S22.31XA - Fracture of one rib, right side, initial encounter for closed fracture Status: Acute DS: Summary Hospital Course Reason for hospitalization: - closed fracture of iliac wing of pelvis - closed head injury - closed fracture of the rib Hospital Course: Patient is a 34-year-old male who has no significant past medical history who presented to on 01/26/2025 after swinging into a tree on a rope swing, hitting his head and losing consciousness. Labs with no significant abnormalities. Head CT with no intracranial findings. Head, C-spine, facial bone CT shows no fractures or bleeds Chest abdomen pelvis CT with no acute traumatic injury within the abdomen or pelvis, no cardiopulmonary abnormality, comminuted fracture right iliac, and fracture posterior right rib 11 In ED, orthopedic surgery initially evaluated imaging and recommended transfer to trauma center however upon re-evaluation, stated the patient could remain here to be admitted. Orthopedic surgery evaluated and recommended toe-touch weight-bearing and crutches. Follow-up in 1 week. PT/OT evaluated and cleared for discharge, will assess need for continued therapy at follow-up visit with Orthopedic surgery. Will continue DVT prophylaxis with aspirin 81 mg twice daily. Pain control prescribed including p.r.n. Petersham. Encouraged to continue incentive spirometry for rib fracture. In regards to head injury, patient remained without focal neuro deficits. Denied headache or double vision. Concussion precautions discussed with patient and at bedside. Time Spent with Patient Time attestation: Total time spent providing and/or coordinating discharge services: Time spent: Greater than 30 minutes Exam Narrative: General: NAD Eyes: EOMI ENT: neck supple Cardiovascular: Regular rate and rhythm Respiratory: Clear to auscultation, respirations even and unlabored on RA Gastrointestinal: Soft, non tender Genitourinary: no suprapubic tenderness Musculoskeletal: No edema Skin: warm, dry Neuro: Alert and oriented x4. Cranial nerves II-XII intact. Face symmetric. Speech clear. Strength 5/5 in BUEs/BLEs. Psych: Mood appropriate DS: Data Data Completed and Pending Completed studies during hospitalization: ITS Impressions Head CT 01/26/25 12:11 IMPRESSION: HEAD: 1. No acute intracranial findings. C-SPINE: 1. No acute fracture. CT FACE: 1. No fractures. Head/Cervical Spine/Facial Bones CT 01/26/25 12:11 IMPRESSION: HEAD: 1. No acute intracranial findings. C-SPINE: 1. No acute fracture. CT FACE: 1. No fractures. Chest/Abdomen/Pelvis CT 01/26/25 12:27 IMPRESSION: CHEST- 1. Fracture posterior right rib 11. 2. No acute cardiopulmonary abnormality. ABDOMEN/PELVIS- 1. Comminuted fracture right iliac. 2. No acute traumatic injury within abdomen or pelvis. Discharge Plan Discharge Attending physician on discharge: Brice Crane Consulting providers: Jose Chavarria; Jimmy Saavedra; Eloise Sharma Discharging Clinician: Eloise Sharma Anticipated Discharge Date/Time: 01/27/25 14:56 Patient Disposition: Home Activity: follow weight bearing status Diet: regular Discharge Instructions: Take all medications as prescribed. You have been prescribed Petersham for pain. We recommend taking ibuprofen or Tylenol for pain and use Petersham for severe pain only. Do not exceed 4000mg of acetaminophen daily. You have been started on aspirin twice daily to prevent blood clots. Continue to utilize crutches with toe touch weight bearing. Follow-up with your primary care provider in one week. Return to the emergency department if you develop chest pain, shortness of breath, persistent fever >100.4, confusion, loss of consciousness. Patient Instructions: Rib Fracture (GEN), Concussion (DC) Patient Language: Luxembourgish Stand Alone Forms: General Discharge Information Follow-up/Referrals: Jimmy Saavedra MD [Physician, Orthopedics] - Call for Appointment Referral Note: follow-up in 1 week Discharge Medications: New aspirin 81 mg capsule 81 mg PO BID Qty: 60 0RF hydrocodone-acetaminophen 5-325 mg tablet 1 tablet PO Q6H PRN (Reason: pain) Qty: 20 0RF ibuprofen 600 mg tablet 600 mg PO TID PRN (Reason: pain) Qty: 30 0RF Date of admission: 01/26/25 16:39 Primary Care Provider: PHYSICIAN,FORM GRADER OPERATOR Admitting Provider: Onofre Ibarra Attending physician on admission: Onofre Ibarra Condition: Stable
--- OUTSIDE RECORDS SUMMARY | 2025-01-28 07:58 | XMS_ITS | Clinical Summary ---
Author Organization 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
--- OUTSIDE RECORDS SUMMARY | 2025-01-28 07:58 | XMS_ITS | Encounter Summary ---
Author Organization [facility] Address 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
--- OUTSIDE RECORDS SUMMARY | 2025-01-28 07:58 | XMS_ITS | Encounter Summary ---
Author Organization [facility] Address 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
--- OUTSIDE RECORDS SUMMARY | 2025-01-28 07:58 | XMS_ITS | Encounter Summary ---
Author Organization [facility] Address 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
== END 2025-01-27 15:55 | disposition home or self-care (01) ==
LOC: ANHED 14:16 → ANH3MEDSUR 19:19
PROVIDERS: Admitting Provider Internal Medicine; Emergency Provider Emergency Medicine; Visit Provider Internal Medicine
DX: S06.0X1A Concussion with loss of consciousness of 30 minutes or less, initial encounter (principal); S01.81XA Laceration without foreign body of other part of head, initial encounter; S22.31XA Fracture of one rib, right side, initial encounter for closed fracture; S32.301A Unspecified fracture of right ilium, initial encounter for closed fracture; W09.8XXA Fall on or from other playground equipment, initial encounter
CPT/HCPCS: 12011; 36415; 70450; 70486; 71260; 72125; 74177; 80053; 85025; 85610; 85730; 96374; 97161; 99285; A9270; G0378; J1171; Q9967